=== PATIENT | female | born 1970 | race Two or more races ===

== ENCOUNTER 2024-05-22 16:08 | Emergency (ER) | payer OTHER ==
[~2024-05-22] VITALS: Ht 167.6 cm; Wt 79.5 kg
[2024-05-22 17:27] VITALS: BP 138/79; PULSE 58; RESP 16; TEMP 98.3; O2SAT 100
== END 2024-05-22 17:28 | disposition home or self-care (01) ==
LOC: ER 16:09
DX: S06.0X0A Concussion without loss of consciousness, initial encounter (principal); X58.XXXA Exposure to other specified factors, initial encounter; Y93.89 Activity, other specified; Y92.89 Other specified places as the place of occurrence of the external cause; Y99.8 Other external cause status
CPT/HCPCS: 70450; 99284

== ENCOUNTER 2025-07-28 11:20 | Outpatient (CLI) | payer OTHER ==
--- NOTE | 2025-07-28 13:13 | RADIOLOGY REPORT ---
EXAM: MR MRI LOWER EXTREMITY RIGHT HISTORY: SPRAIN OF CALCANEOFIBULAR LIGAMENT OF RIGHT ANKLE, COMPARISON: None TECHNIQUE: Multiplanar, multisequence MRI was performed. FINDINGS: The visualized osseous structures demonstrate normal cortical and bone marrow signal intensity without evidence of fracture, trabecular bony injury, or dislocation. Small 1st MTP joint effusion. The 1st MTP joint is maintained with there is minimal marginal osteophytosis. Hallux sesamoid complex is intact. The Lisfranc ligament is intact. The visualized portions of tibialis posterior, flexor hallucis longus, and flexor digitorum tendons are intact. Visualized portions of peroneus longus and brevis tendons are intact. Visualized portions of the tibialis anterior, extensor digitorum, and extensor hallucis tendons are intact. There is minimal focal thickening of the central band of the plantar fascia measuring 0.5 x 0.3 cm in the transverse and craniocaudal that may represent a fibroma. There is no evidence of intermetatarsal bursitis or Rodriguez's neuroma. No significant muscle atrophy is noted. Remainder of the soft tissues are within normal limits. IMPRESSION: 1. 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 2. Mild 1st MTP joint osteoarthritis and small joint effusion. 3. Please note the calcaneofibular ligament can not be evaluated on forefoot MRI. Further evaluation with MRI of the ankle is recommended.
== END 2025-07-28 23:59 | disposition home or self-care (01) ==
LOC: MRI02 11:20
PROVIDERS: ATTEND Podiatrist Foot & Ankle Surgery
DX: S93.411D Sprain of calcaneofibular ligament of right ankle, subsequent encounter (principal); M25.471 Effusion, right ankle; M19.071 Primary osteoarthritis, right ankle and foot; M72.2 Plantar fascial fibromatosis; X58.XXXD Exposure to other specified factors, subsequent encounter
CPT/HCPCS: 73718